=== PATIENT | female | born 1975 | race Caucasian/White ===

== ENCOUNTER 2018-03-08 08:15 | Outpatient (RCR) | payer OTHER, SELFPAY ==
--- NOTE | 2018-03-01 10:49 | PT.OTN ---
Transition note: On February 27, 2018 our therapy services consisting of Speech, Occupational, and Physical Therapy transitioned from the [employer] electronic documentation system to a new [employer] electronic documentation system.?? All documentation prior to February 27 can be found under [employer] saved data. From February 27 forward all medical record documentation will be in [employer] 6.1. Current Diagnoses Pain in right ankle and joints of right foot (03/01/18) Difficulty in walking, not elsewhere classified (03/01/18) Weakness (03/01/18) Edema, unspecified (03/01/18) Physical Therapy Treatment Note PT-OP-C Subjective Start: 03/01/18 08:06 Freq: Status: Active Protocol: Activity Type Activity Date Activity User E-Sign Co-Sign Detail Recorded Client Recorded Date Recorded By Document 03/01/18 08:20 [facility] [id number] 03/01/18 08:21 [facility] PT-OP-Q Treatments Start: 03/01/18 08:06 Freq: Status: Active Protocol: Activity Type Activity Date Activity User E-Sign Co-Sign Detail Recorded Client Recorded Date Recorded By Document 03/01/18 08:22 SAK [id number] 03/01/18 09:00 RISSA
--- NOTE | 2018-03-01 17:26 | PT.OTN ---
Current Diagnoses Pain in right ankle and joints of right foot (03/01/18) Difficulty in walking, not elsewhere classified (03/01/18) Weakness (03/01/18) Edema, unspecified (03/01/18) Physical Therapy Treatment Note PT-OP-A Visit Information Start: 03/01/18 08:06 Freq: Status: Active Protocol: Activity Type Activity Date Activity User E-Sign Co-Sign Detail Recorded Client Recorded Date Recorded By Document 03/01/18 17:22 [facility] [id number] 03/01/18 17:26 [facility] 03/01/18 17:22 Out-Patient Physical Therapy Visit Information [Visit Information] -Visit Type Treatment Note -Visit Start Time 08:15 -Visit Stop Time 09:10 -Total Visit Minutes 55 -Visit Number 2 -Number of ANNEALING OVEN OPERATOR Visits 0 PT-OP-C Subjective Start: 03/01/18 08:06 Freq: Status: Active Protocol: Activity Type Activity Date Activity User E-Sign Co-Sign Detail Recorded Client Recorded Date Recorded By Document 03/01/18 08:20 [facility] [id number] 03/01/18 08:21 [facility] 03/01/18 08:20 OP-PT Subjective [Patient Comments] -Patient Comments Back pain has hampered her ability to do exercises, but fair compliance . OP-PT Pain Assessment [Home Pain Medication Use] -Pain Medications Used No PT-OP-Q Treatments Start: 03/01/18 08:06 Freq: Status: Active Protocol: Activity Type Activity Date Activity User E-Sign Co-Sign Detail Recorded Client Recorded Date Recorded By Document 03/01/18 08:22 [facility] [id number] 03/01/18 09:00 [facility] 03/01/18 08:22 Cardio Equipment [Recumbent Bicycle] -Duration (Minutes) 5 -Resistance 6 -Seat Position 2 Gym Equipment [Shuttle Recovery] Unilateral Squats -Resistance 50 -Shuttle Recovery Platform Stable Bilateral Squats -Resistance 62 -Shuttle Recovery Platform Stable -Reps/Time 20 [Shuttle Balance] 1 -Details chains red, bal and weight shift side to side and forward/back -Comments 10 min Therapeutic Exercises [Sitting Exercises] 4 -Sitting Exercise Name ankle inv/ev -Side bilateral -Resistance L2 2 -Sitting Exercise Name towel scrunch -Side bilateral -Reps/Minutes 2' 1 -Sitting Exercise Name BAPS board ROM -Side bilateral -Equipment Used #2 ball -Reps/Minutes 10 -Comments df/pf, inv/ev, circles [Standing Exercises] 3 -Standing Exercise Name heelcord stretch -Side bilateral -Equipment Used ANAYA 2 -Standing Exercise Name single leg stand on foam -Reps/Minutes 4' 1 -Standing Exercise Name BOSU lunge -Side bilateral PT-OP-R Modalities Start: 03/01/18 08:06 Freq: Status: Active Protocol: Activity Type Activity Date Activity User E-Sign Co-Sign Detail Recorded Client Recorded Date Recorded By Document 03/01/18 17:21 [facility] [id number] 03/01/18 17:22 [facility] 03/01/18 17:21 Electric Stimulation [Electric Stimulation] Interferential Current (IFC) -Body Location right foot/ ankle -Duration (Minutes) 12 -Target/Sweep Sweep -Patient Position Hooklying -Combined With Heat/Cold Cold Pack PT-OP-T Assessment and Plan Start: 03/01/18 08:06 Freq: Status: Active Protocol: Activity Type Activity Date Activity User E-Sign Co-Sign Detail Recorded Client Recorded Date Recorded By Document 03/01/18 17:22 [facility] [id number] 03/01/18 17:26 [facility] 03/01/18 17:22 Physical Therapy Assessment [Assessment Summary] -Assessment Patient demonstrated good tolerance to therapy activities today with some c/o aching but no pain. Was able to progress to L2 theraband for ankle inv/ev. Physical Therapy Plan [Next Visit Focus/Plan] -Next Visit Plan Progression of therapy activities to address balance dysfunction, weakness, activity intolerance.
--- NOTE | 2018-03-08 09:08 | PT.OTN ---
Current Diagnoses Pain in right ankle and joints of right foot (03/08/18) Difficulty in walking, not elsewhere classified (03/08/18) Weakness (03/08/18) Edema, unspecified (03/08/18) Physical Therapy Treatment Note PT-OP-A Visit Information Start: 03/01/18 08:06 Freq: Status: Active Protocol: Document 03/08/18 09:02 [facility] (Rec: 03/08/18 09:08 [facility] [id number]) Out-Patient Physical Therapy Visit Information Visit Information Visit Type Treatment Note Visit Start Time 08:15 Visit Stop Time 09:10 Total Visit Minutes 55 Visit Number 3 Number of ARRESTING GEAR OPERATOR Visits 0 Evaluation Information Evaluation Date 02/08/18 PT-OP-C Subjective Start: 03/01/18 08:06 Freq: Status: Active Protocol: Document 03/08/18 08:12 [facility] (Rec: 03/08/18 08:48 [facility] [id number]) OP-PT Subjective Patient Comments Patient Comments [place] good after PT last session with swelling . Muscle soreness but not pain OP-PT Pain Assessment Home Pain Medication Use Pain Medications Used No PT-OP-Q Treatments Start: 03/01/18 08:06 Freq: Status: Active Protocol: Document 03/08/18 08:12 [facility] (Rec: 03/08/18 08:48 [facility] [id number]) Cardio Equipment Recumbent Bicycle Duration (Minutes) 5 Resistance 6 Seat Position 2 Gym Equipment Shuttle Recovery Unilateral Squats Resistance 50 Shuttle Recovery Platform Stable Bilateral Squats Resistance 75 Shuttle Recovery Platform Unstable Reps/Time 20 Therapeutic Exercises Standing Exercises 5 Standing Exercise Name BOSU step-ups, bal darek and unil Reps/Minutes 6 min 4 Standing Exercise Name balance beam Comments fwd, bck, dips 3 Standing Exercise Name heelcord stretch Side bilateral Equipment Used ANAYA PT-OP-R Modalities Start: 03/01/18 08:06 Freq: Status: Active Protocol: Document 03/08/18 08:12 [facility] (Rec: 03/08/18 08:48 [facility] [id number]) Electric Stimulation Electric Stimulation Interferential Current (IFC) Body Location right foot/ankle Duration (Minutes) 12 Target/Sweep Sweep Patient Position Hooklying Combined With Heat/Cold Cold Pack PT-OP-T Assessment and Plan Start: 03/01/18 08:06 Freq: Status: Active Protocol: Document 03/08/18 09:02 [facility]IS[facility] (Rec: 03/08/18 09:08 [facility] [id number]) Physical Therapy Assessment Assessment Summary Assessment Good pain relief with ice and e-stim, patient reports overall less swelling. Good tolerance for progression of ther ex with cues for correct and safe exercise performance. Physical Therapy Plan Frequency and Duration Frequency of Treatment 1x/Week Duration of Treatment 2 months Plan of Care Start Date 02/08/18 Plan of Care End Date 04/05/18 Therapeutic Interventions Therapeutic Interventions Balance Training Gait Training Home Exercise Program Manual Therapy Patient/Caregiver Education Self-Care/Home Management Therapeutic Activities Therapeutic Exercises Modalities Cold Pack/Ice Massage Electric Stimulation Ultrasound Next Visit Focus/Plan Next Visit Plan continue to progress therapeutic exercise, balance training, HEP.
--- NOTE | 2018-06-26 11:40 | PT.OPDS ---
Current Diagnoses Pain in right ankle and joints of right foot (03/08/18) Difficulty in walking, not elsewhere classified (03/08/18) Weakness (03/08/18) Edema, unspecified (03/08/18) Provider Visit Care Team Role Provider Type John Dacosta MD Attending Provider Non-Staff Family Provider Primary Care Provider Specialty: Orthopedics Address: [address] [place] [address], [id number] Email: Visit Number Visit Number 3 Discharge Summary PT-OP-C Subjective Start: 03/01/18 08:06 Freq: Status: Active Protocol: Document 05/22/18 13:46 [facility] (Rec: 05/22/18 13:47 [facility] [id number]) OP-PT Subjective Patient Comments Patient Comments Left phone message with patient regarding need for any further PT. Will discharge if don't hear anything by end of week. PT-OP-T Assessment and Plan Start: 03/01/18 08:06 Freq: Status: Active Protocol: Document 06/26/18 11:39 [facility] (Rec: 06/26/18 11:40 [facility] [id number]) Physical Therapy Plan Discharge Physical Therapy Discharge Reasons No Longer Attending PT Discharge Comments Patient not seen in PT since ; had been making good progress. PT was out on vacation then extended illness . Phone call to check on patient status not returned and she has not made further appointments. Will be discharged from PT.
== END 2018-07-18 13:45 ==
LOC: PHYS 08:15
PROVIDERS: Family Provider Orthopaedic Surgery; PCP Orthopaedic Surgery; Visit Provider Orthopaedic Surgery
DX: M25.571 Pain in right ankle and joints of right foot (principal); R26.2 Difficulty in walking, not elsewhere classified; R53.1 Weakness; R60.9 Edema, unspecified
CPT/HCPCS: 97014; 97110; G0283

== ENCOUNTER → 2018-07-11 14:00 | Outpatient (CLI) | payer OTHER, SELFPAY | PROVIDERS: Family Provider Orthopaedic Surgery; PCP Orthopaedic Surgery | DX: Z23 Encounter for immunization (principal) | CPT/HCPCS: 90471; 90686 ==

== ENCOUNTER 2025-04-18 03:51 | Emergency (ER) | payer OTHER, SELFPAY ==
--- NOTE | 2025-04-18 03:58 | ED_ITS ---
HPI - Abdominal Pain General Chief Complaint: Urogenital-Female Stated Complaint: Possible kidney stone Time Seen by Provider: 04/18/25 03:58 History of Present Illness HPI narrative: Patient 49-year-old past medical history of hypertension comes into the ED from home for evaluation of left-sided flank pain, states that she does have a history of kidney stones states this does feel somewhat similar to the past, states it was in 2021. She states that she is endorsing nausea and vomiting secondary to the pain nothing making it better or worse. Denies any other symptoms such as headache visual disturbances chest pain shortness breath fever chills or any other GI/ symptoms at this time. Related Data Home Medications ?Medication ?Instructions ?Recorded ?Confirmed metoprolol succinate 25 mg 25 mg PO QDAY ##0 08/21/17 10/11/24 tablet,extended release 24 hr (Toprol XL) doxycycline hyclate 20 mg tablet 20 mg PO BID 01/26/19 10/11/24 valacyclovir 500 mg tablet 500 mg PO DAILY PRN 9 10/11/24 losartan 100 mg tablet 100 mg PO DAILY 09/29/24 Previous Rx's ?Medication ?Instructions ?Recorded cephalexin 500 mg capsule 500 mg PO TID 7 days #21 cap s 04/18/25 ondansetron 4 mg disintegrating 4 mg PO Q8H PRN nausea and 04/18/25 tablet vomiting 1 week #21 tabs oxycodone-acetaminophen 5 mg-325 1 tab PO Q8H PRN pain 3 days #9 04/18/25 mg tablet (Percocet) tabs tamsulosin 0.4 mg capsule (Flomax) 0.4 mg PO DAILY 1 w [place] #7 caps 04/18/25 Allergies Allergy/AdvReac Type Severity Reaction Status Date / Time No Known Drug Allergies Allergy Unverified 10/11/24 08:12 Review of Systems Review of Systems Narrative: General: Denies fever, chills, weight loss HEENT: Denies headache, eye drainage, eye irritation, head trauma, sore throat, voice change Cardiovascular: Denies any chest pain, palpitations, tachycardia Respiratory: Denies any shortness of breath, cough, wheeze, stridor GI/: Positive left-sided flank pain, nausea, vomiting Denies any abdominal pain, diarrhea, bright red blood per rectum, melanotic stools, urinary frequency, urinary retention, dysuria, hematuria MSK: Denies any joint pain, muscle pains, swelling Skin: Denies any rashes, lesions, discoloration Neuro: Denies any headache, lightheadedness, dizziness, fainting, weakness Psych: Denies SI/HI Patient History Medical History (Updated 04/18/25 @ 05:48 by Dutch Duong DO) Rosacea Allergies Depression Lumbar disc disease Bone spur of foot (~2016) Chronic back pain Cervical spine disease Herpes labialis (~1977) Chicken pox (~1977) Iron deficiency anemia (~2021) Tinnitus Perimenopausal Ovarian cyst History of urinary incontinence Kidney stones GERD (gastroesophageal reflux disease) Hyperparathyroidism (~2023) Pituitary adenoma (~2012) Graves disease (~2012) SVT (supraventricular tachycardia) Hypertension (~1995) Surgical History (Updated 11/18/24 @ 18:52 by Sybil Mcclain) Anesthesia S/P parathyroidectomy Hx of breast biopsy Hx of tonsillectomy (~1985) Hx of tubal ligation (~1996) H/O lithotripsy (~08/2022) [place] teeth removed (10/30/93) Family History (Updated 11/18/24 @ 18:58 by Sybil Mcclain) Father Cancer History of heart disease Mother History of heart disease Atrial fibrillation Hypertension Brother Lymphoma Sister Crohn's disease Sister Mode's granulomatosis Crohn's disease Hypertension Grandmother Cancer Grandfather Cancer Grandmother Cancer Family/Other PCOS (polycystic ovarian syndrome) Exam Narrative Exam Narrative: General: Cooperative, well-developed, not in acute distress HEENT: Normocephalic, atraumatic, PERRLA, normal sclera, eyelids normal Neck: Active full range of motion, atraumatic Chest: Normal to inspection, negative crepitus, no overlying erythema ecchymosis Respiratory: Normal respiratory effort, not in acute respiratory distress, clear to auscultation bilaterally negative cough, wheeze, tachypnea, rhonchi, rales Cardiology: Regular rate rhythm negative gallop, murmur, rubs GI/: Positive left-sided CVA tenderness, No tenderness to palpation, soft, non rigid, normal to inspection, exam deferred MSK: Full active range of motion in all 4 extremities, atraumatic, no tenderness to palpation of any bony prominences Skin: No rashes or lesions noted Neuro: Alert awake oriented x3, moves all 4 extremities spontaneously, cranial nerves intact, able to answer all questions appropriately follows commands appropriately Psych: Cooperative, negative suicidal or homicidal ideations Initial Vital Signs Initial Vital Signs: Vital Signs Temperature 99.1 F 04/18/25 04:00 Pulse Rate 84 04/18/25 04:00 Respiratory Rate 20 04/18/25 04:00 Blood Pressure 182/97 H 04/18/25 04:00 Pulse Oximetry 100 04/18/25 04:00 Oxygen Delivery Method Room Air 04/18/25 04:00 Course Orders Ordered: ED Orders 04/18/25 03:59 CT kidney ureter bladder (KUB) Stat 04/18/25 04:05 Complete Blood Count AUTO DIFF Stat Comprehensive Metabolic Panel Stat 04/18/25 05:50 Ictotest Urine Stat Urinalysis and Microscopic Stat Discontinued Medications Sodium Chloride (Normal Saline 0.9%) 1,000 mls @ 1,000 mls/hr IV BOLUS ONE Stop: 04/18/25 04:58 Last Admin: 04/18/25 04:48 Dose: 1,000 mls/hr Documented By: AMOS Ketorolac Tromethamine (Ketorolac 30 Mg/Ml Vial) 30 mg IV NOW ONE Stop: 04/18/25 04:44 Last Admin: 04/18/25 04:47 Dose: 30 mg Documented By: AMOS Morphine Sulfate (Morphine 4 Mg/Ml Inj) 4 mg IV NOW ONE Stop: 04/18/25 04:01 Last Admin: 04/18/25 04:13 Dose: 4 mg Documented By: Ondansetron HCl (Ondansetron 4 Mg/2 Ml Inj) 4 mg IV NOW ONE Stop: 04/18/25 04:00 Last Admin: 04/18/25 04:13 Dose: 4 mg Documented By: Tamsulosin HCl (Tamsulosin 0.4 Mg Capsule) 0.4 mg PO NOW ONE Stop: 04/18/25 05:05 Last Admin: 04/18/25 05:14 Dose: 0.4 mg Documented By: AMOS Vital Signs Vital signs: Vital Signs - 8 hr 04/18/25 04:00 04/18/25 04:30 04/18/25 05:00 Temperature 99.1 F Pulse Rate 84 68 65 Respiratory Rate 20 16 16 Blood Pressure 182/97 H 165/87 H 164/79 H Pulse Oximetry 100 96 96 Oxygen Delivery Method Room Air MDM - Abdominal Pain Differential Diagnosis Differential diagnosis: Likely calculus of kidney and other (Urinary tract infection, pyelonephritis, muscle strain) Lab Data 04/18/25 04:05 04/18/25 04:05 Labs: Lab Results 04/18/25 04/18/25 Range/Units 04:05 05:50 WBC 10.7 (4.5-11.0) X10^3/uL RBC 5.43 H (4.0-5.2) X10^6/uL Hgb 13.6 (12.0-16.0) g/dL Hct 43.1 (36-46) % MCV 79.3 L (80-100) fL MCH 25.1 L (26-34) PG MCHC 31.6 (30-36) % RDW 19.2 H (11.6-14.8) % Plt Count 279 (150-400) X10^3/uL Neut % (Auto) 58.5 (50-75) % Lymph % (Auto) 30.7 (25-40) % [place] % (Auto) 9.0 (3-14) % Eos % (Auto) 1.0 L (2-4) % Baso % (Auto) 0.8 (0-2) % Neut # (Auto) 6300 (8719-8865) /uL Lymph # (Auto) 3300 (8413-7768) /uL [place] # (Auto) 1000 H (0-900) /uL Eos # (Auto) 100 (0-450) /uL Baso # (Auto) 100 (0-100) /uL Sodium 138 (137-145) mmol/L Potassium 3.7 (3.4-5.1) mmol/L Chloride 105 (98-107) mmol/L Carbon Dioxide 21 L (22-32) mmol/L BUN 18 H (7-17) mg/dL Creatinine 0.74 (0.52-1.04) mg/dL Estimated GFR > 60 (>60) mL/min BUN/Creatinine Ratio 24.3 H (6-22) Glucose 126 H (70-99) mg/dL Calcium 9.4 (8.4-10.2) mg/dL Total Bilirubin 1.0 (0.2-1.3) mg/dL AST 27 (14-36) IU/L ALT 22 (<35) IU/L Alkaline Phosphatase 67 (38-126) U/L Total Protein 8.0 (6.3-8.2) g/dL Albumin 4.7 (3.5-5.0) g/dL Globulin 3.3 (1.7-4.1) g/dL Albumin/Globulin Ratio 1.4 (1.0-2.8) Urine Color Brown Urine Appearance Cloudy Urine pH 5.5 (4.5-8.0) Ur Specific [place] 1.025 (1.000-1.035) Urine Protein 2+ H (Negative) Urine Glucose (UA) Negative (Negative) g/dL Urine Ketones Trace H (NEGATIVE) Urine Occult Blood 3+ H (Negative) Urine Nitrate Negative (Negative) Urine Bilirubin 1+ H (NEGATIVE) Ur Bilirubin Confirm Negative (Negative) Urine Urobilinogen 1.0 (0.2) E.U./dL Ur Leukocyte Esterase Negative (NEGATIVE) Urine RBC >100/hpf H (0-5/HPF) Urine WBC 0-1/hpf (0-5/HPF) Ur Squamous Epith Cells 1-5 /hpf (0-5/HPF) Calcium Oxalate Crystal Few H Urine Bacteria Few (2-10) H (None) Urine Mucus 2+ H (Negative) Ur Culture Indicated? Cult not indicated Vol Urine Centrifuged 10ml (spun) Imaging Data CT scan - abdomen/pelvis: Radiologist's Impression: Preliminary read showing severe left hydro ureteral nephrosis with perinephric stranding and periureteral inflammatory changes with an obstructing mid ureteral calculus measuring 4 mm [facility] Narrative Medical decision making narrative: 49-year-old female with past medical history of hypertension presenting for left-sided flank pain sudden onset just prior to arrival states similar to when she had kidney stones to her right, this was in 2021. She endorses nausea and vomiting secondary to the pain but denies any other symptoms. Patient had lab work imaging urinalysis performed here in the emergency department. Patient without any leukocytosis, creatinine normal, CT scan showing mid urolithiasis measuring 4 mm. 0511: Patient was re-evaluated by me, she is laying comfortably in the stretcher, she states that after the administration of additional 30 mg Toradol pain has almost completely subsided. Informed her that we are still awaiting urine sample she verbalized understanding of this and agrees to plan. 0628: Patient re-evaluated lying in stretcher comfortably, patient was instructed to follow up with Urology in outpatient setting, she verbalized understanding of this and agrees to being discharged home with outpatient follow up Discharge Plan Departure Patient Disposition: Home Clinical Impression: Urolithiasis Instructions: DI for Kidney Infection Activity Restrictions/Additional Instructions: Please follow up with Urology and PCP in outpatient setting Please return immediately to the emergency department if your symptoms worsen or if you start developing a fever Please read the discharge instructions sheet carefully and bring all papers to all doctor follow-up visits, as it may contain information that your doctor may want to see. Disease processes change and evolve, if your symptoms worsen or if you develop any new symptoms that are concerning to you please return for evaluation. Your evaluation today does not show any evidence of any life- threatening/serious illnesses requiring admission to the hospital or surgery. Please follow-up with your doctor for re-evaluation in approximately 1 day. Seek immediate medical attention for any worrisome symptoms. *If you do not have a primary care provider please contact the [facility] Resource line at [phone]. They will ask some questions about your medical history and help get you set up with a doctor in the community. Prescriptions: New cephalexin 500 mg capsule 500 mg PO TID 7 Days Qty: 21 0RF ondansetron 4 mg tablet,disintegrating 4 mg PO Q8H PRN (Reason: nausea and vomiting) 7 Days Qty: 21 0RF oxycodone-acetaminophen [Percocet] 5-325 mg tablet 1 tab PO Q8H PRN (Reason: pain) 3 Days Qty: 9 0RF tamsulosin [Flomax] 0.4 mg capsule 0.4 mg PO DAILY 7 Days Qty: 7 0RF No Action valacyclovir 500 mg tablet 500 mg PO DAILY PRN doxycycline hyclate 20 mg tablet 20 mg PO BID losartan 100 mg tablet 100 mg PO DAILY metoprolol succinate [Toprol XL] 25 MG tablet extended release 24 hr 25 mg PO QDAY Qty: 0 Referrals: Chris Brown DO [Physician, Urology] Referral Note: Urolithiasis Elsy Taylor DO [Primary Care Provider, Family Practice] Stand Alone Forms: Patient Portal/API
--- NOTE | 2025-04-18 03:59 | DI.CT.S_ITS ---
PROCEDURE: CT KIDNEY URETER BLADDER (KUB) INDICATIONS: left TECHNIQUE: Axial sections were acquired from the lung bases to the pubic symphysis. Coronal and sagittal reformats were performed. For radiation dose reduction, the following was used: automated exposure control, adjustment of mA and/or kV according to patient size. COMPARISON: None. FINDINGS: Image quality: Diagnostic. Lower Chest: No significant findings. URINARY: Right Kidney: Normal renal morphology. No stone or hydronephrosis. Right lateral and inferior pole cysts. Right Ureter: No hydroureter, ureteral calculus, or periureteric inflammation. Left Kidney: Left hydronephrosis and moderate perinephric inflammation. Lobulated cortex and probable lateral midpole cyst. Left Ureter: 8 x 5 mm stone in the proximal left ureter. Distal ureter is decompressed. Bladder: Decompressed. No visible stone. ABDOMEN: Liver: No contour-deforming solid mass. Gallbladder: No wall thickening or calcified stones. Biliary ducts: No biliary dilation. Pancreas: No ductal dilation. Spleen: Size is within normal limits. Adrenal Glands: No adrenal nodules. Stomach and Bowel: Stomach and small bowel loops are normal caliber. Appendix not visible. Normal quantity of colonic stool. No suspicious colon wall thickening or inflammation. Peritoneum: No abnormal intraperitoneal fluid. No free air. Ventral Wall: No hernia. Abdominal Nodes: No enlarged retroperitoneal or mesenteric lymph nodes. Vessels: The abdominal aorta, IVC, and portal vein are of normal caliber. PELVIS: Pelvic Organs: Anteverted uterus. Normal ovaries. No suspicious adnexal mass. Pelvic Nodes: Unremarkable. Miscellaneous: No inguinal hernias are seen. Bones: Unremarkable. IMPRESSION: Obstructing 0.8 cm left proximal ureteral stone causing hydronephrosis. Final interpretation is concordant with preliminary report. Dictated by: Mere Nathan M.D. on 04/18/2025 at 8:56 Approved by: Mere Nathan M.D. on 04/18/2025 at 9:06
[2025-04-18 04:00] VITALS: BP 182/97; PULSE 84; RESP 20; TEMP 37.3; O2SAT 100; BMI 29.9
[2025-04-18 04:12] LABS: Add Manual Diff / Slide Review NO; Basophils Absolute Auto 100 /uL (0-100); Basophils Percent Auto 0.8 % (0-2); Eosinophils Absolute Auto 100 /uL (0-450); Hematocrit 43.1 % (36-46); Hemoglobin 13.6 g/dL (12.0-16.0); Lymphocytes Absolute Auto 3300 /uL (1100-4500); Lymphocytes Percent Auto 30.7 % (25-40); Mean Corpuscular HGB Conc 31.6 % (30-36); Mean Corpuscular Hemoglobin 25.1 PG (26-34); Mean Corpuscular Volume 79.3 fL (80-100); Monocytes Absolute Auto 1000 /uL (0-900); Neutrophils Absolute Auto 6300 /uL (1500-7000); Neutrophils Percent Auto 58.5 % (50-75); Platelet Count 279 X10^3/uL (150-400); Red Blood Cell Count 5.43 X10^6/uL (4.0-5.2); Red Cell Distribution Width 19.2 % (11.6-14.8); White Blood Cell Count 10.7 X10^3/uL (4.5-11.0)
[2025-04-18] MEDS: ONDANSETRON 4 MG/2 ML INJ IV (04:13)
[2025-04-18] MEDS: MORPHINE 4 MG/ML INJ IV (04:13)
[2025-04-18 04:22] LABS: Alanine Aminotransferase 22 IU/L (<35); Albumin 4.7 g/dL (3.5-5.0); Albumin Globulin Ratio 1.4 (1.0-2.8); Alkaline Phosphatase 67 U/L (38-126); Aspartate Aminotransferase 27 IU/L (14-36); BUN Creatinine Ratio 24.3 (6-22); Blood Urea Nitrogen 18 mg/dL (7-17); Calcium 9.4 mg/dL (8.4-10.2); Carbon Dioxide 21 mmol/L (22-32); Chloride 105 mmol/L (98-107); Estimated Glomerular Filt Rate > 60 mL/min (>60); Globulin 3.3 g/dL (1.7-4.1); Glucose 126 mg/dL (70-99); HEMOLYSIS < 15 (0-50); Potassium 3.7 mmol/L (3.4-5.1); Sodium 138 mmol/L (137-145)
[2025-04-18 04:30] VITALS: BP 165/87; PULSE 68; RESP 16; O2SAT 96
[2025-04-18] MEDS: KETOROLAC 30 MG/ML VIAL IV (04:47)
[2025-04-18] MEDS: SODIUM CHLORIDE 0.9% 1,000 ML 1000 ML IV (04:48)
[2025-04-18 05:00] VITALS: BP 164/79; PULSE 65; RESP 16; O2SAT 96
[2025-04-18] MEDS: TAMSULOSIN 0.4 MG CAPSULE PO (05:14)
[2025-04-18 05:20] VITALS: PULSE 64; O2SAT 96
[2025-04-18 05:30] VITALS: BP 159/79; PULSE 64; RESP 18; O2SAT 95
[2025-04-18 06:17] LABS: Bilirubin Urine UA 1+ (NEGATIVE); Glucose Urine UA NEGATIVE (Negative); Ketones Urine UA TRACE (NEGATIVE); Leukocyte Esterase Urine UA NEGATIVE (NEGATIVE); Nitrite Urine UA NEGATIVE (Negative); Occult Blood Urine UA 3+ (Negative); Protein Urine UA 2+ (Negative); Specific Gravity Urine UA 1.025 (1.000-1.035)
[2025-04-18 06:18] LABS: Appearance Urine UA Cloudy; Color Urine UA BROWN; pH Urine UA 5.5 (4.5-8.0)
[2025-04-18 06:19] LABS: Ictotest Urine Negative (Negative); Urine Volume 10mL (spun)
[2025-04-18 06:22] LABS: Bacteria Urine Few (2-10); Calcium Oxalate Crystals Urine Few; Mucus Urine 2+ (Negative); RBC Urine >100/HPF (0-5/HPF); Squamous Epithelial Cell Urine 1-5 /HPF (0-5/HPF); WBC Urine 0-1/HPF (0-5/HPF)
[2025-04-18 06:23] LABS: Culture Indicated Urine Cult Not Indicated
[2025-04-18] MEDS: cephALEXin 250 MG CAPSULE 500 MG PO (06:38)
== END 2025-04-18 06:48 | disposition home or self-care (01) ==
PROVIDERS: Emergency Provider Student in an Organized Health Care Education/Training Program; Family Provider Orthopaedic Surgery; PCP Family Medicine
DX: N20.9 Urinary calculus, unspecified (principal); Z87.442 Personal history of urinary calculi
CPT/HCPCS: 36415; 74176; 80053; 81001; 85025; 96361; 96374; 96375; 99284; J1885; J2270; J2405

== ENCOUNTER → 2025-04-29 17:42 | Outpatient (CLI) | payer OTHER, SELFPAY | PROVIDERS: Family Provider Orthopaedic Surgery; PCP Family Medicine; Referring Provider Physician Assistant; Visit Provider Physician Assistant | DX: N20.0 Calculus of kidney (principal) | CPT/HCPCS: 87086 ==